=== PATIENT | male | born 1965 | race African-American/Black ===

== ENCOUNTER 2020-11-11 12:33 | Emergency (ER) | payer MEDICAID, OTHER ==
[~2020-11-11] VITALS: Ht 167.6 cm; Wt 72.7 kg
[2020-11-11 14:04] LABS: BASOPHILS % (AUTO) 0.5 % (0.0-2.0); EOSINOPHILS % (AUTO) 0.4 % (1.0-6.0); HEMOGLOBIN 13.8 g/dL (13.5-17.5); LYMPHOCYTES # (AUTO) 1.7 K/uL (1.0-4.8); LYMPHOCYTES % (AUTO) 20.3 % (22.0-44.0); MEAN CORPUSCULAR HEMOGLOBIN 28.5 pg (26.0-34.0); MEAN CORPUSCULAR HGB CONC 32.2 G/dL (31.0-37.0); MEAN CORPUSCULAR VOLUME 89 fL (80-100); MONOCYTES # (AUTO) 0.4 K/uL (0.1-1.0); MONOCYTES % (AUTO) 4.5 % (2.0-9.0); NEUTROPHILS # (AUTO) 6.2 K/uL (1.8-7.7); NEUTROPHILS % (AUTO) 74.3 % (40.0-70.0); PLATELET COUNT (AUTO) 230 K/uL (150-450); RED BLOOD CELL COUNT(AUTO) 4.85 MIL/uL (4.50-5.90); RED CELL DISTRIBUTION WIDTH 13.1 % (11.5-14.5)
[2020-11-11 14:15] LABS: ANION GAP 8 mmol/L (8-16); CALCIUM, TOTAL 8.9 mg/dL (8.8-10.5); CARBON DIOXIDE 29 mmol/L (22-29); CHLORIDE 103 mmol/L (98-107); CREATININE 1.31 mg/dL (0.60-1.30); GLOMERULAR FILTR. RATE CALC > 60 mL/min (>60); GLUCOSE,RANDOM 120 mg/dL (70-110); POTASSIUM 3.9 mmol/L (3.5-5.1); SODIUM SERUM 140 mmol/L (136-145); UREA NITROGEN, BLOOD 14 mg/dL (7-18)
[2020-11-11 14:24] LABS: ALANINE AMINOTRANSFERASE 60 U/L (12-78); ALKALINE PHOSPHATASE 104 U/L (46-116); ASPARTATE AMINOTRANSFERASE 24 U/L (15-37); BILIRUBIN,TOTAL 0.3 mg/dL (0.1-1.0); LIPASE 201 U/L (73-393); TOTAL PROTEIN, SERUM 8.6 g/dL (6.4-8.2)
[2020-11-11 15:21] VITALS: BP 179/27
== END 2020-11-11 16:49 | disposition home or self-care (01) ==
LOC: EMS 12:37
DX: K59.00 Constipation, unspecified (principal); I10 Essential (primary) hypertension; Z87.891 Personal history of nicotine dependence; Z86.73 Personal history of transient ischemic attack (TIA), and cerebral infarction without residual deficits; Z88.0 Allergy status to penicillin
CPT/HCPCS: 71045; 74176; 80053; 83690; 84484; 85025; 93005; 99285; 36415-L1; 36415-TC

== ENCOUNTER 2021-09-08 12:48 | Emergency (ER) | payer MEDICAID ==
[~2021-09-08] VITALS: Ht 165.1 cm; Wt 72.7 kg
[2021-09-08] MEDS ORDERED: ASPI-1444 PO (12:56)
[2021-09-08] MEDS ORDERED: HYDR-4870 PO (12:56)
[2021-09-08] MEDS ORDERED: BECL10.6 IH (12:56)
[2021-09-08] MEDS ORDERED: AMLO-258 PO (12:56)
[2021-09-08] MEDS ORDERED: ATOR20TA86 PO (12:56)
[2021-09-08] MEDS ORDERED: ALBU8.5H8 IH (12:56)
[2021-09-08] MEDS ORDERED: LISI-894 PO (12:56)
[2021-09-08] MEDS ORDERED: LOSA-382 PO (12:56)
[2021-09-08] MEDS ORDERED: IBUP-2070 PO (15:27)
[2021-09-08] MEDS ORDERED: IBUPROFEN 600 MG TABLET PO ONE (15:30)
[2021-09-08 15:42] VITALS: BP 155/95
== END 2021-09-08 15:46 | disposition home or self-care (01) ==
LOC: EMS 12:48
DX: M25.532 Pain in left wrist (principal); M25.561 Pain in right knee; M54.50 Low back pain, unspecified; J44.9 Chronic obstructive pulmonary disease, unspecified; I10 Essential (primary) hypertension; Z86.73 Personal history of transient ischemic attack (TIA), and cerebral infarction without residual deficits; Z98.890 Other specified postprocedural states; Z88.0 Allergy status to penicillin; V43.52XA Car driver injured in collision with other type car in traffic accident, initial encounter; Y93.89 Activity, other specified; Y92.89 Other specified places as the place of occurrence of the external cause; Y99.8 Other external cause status
CPT/HCPCS: 72100; 99284; 73110-TC; 73562-TC; Z7502; Z7610